=== PATIENT | male | born 1975 | race Caucasian/White ===

== ENCOUNTER 2022-08-04 07:08 | Day surgery (SDC) | payer BC ==
[2022-07-31 12:25] VITALS: BMI 32.8
[2022-08-04] MEDS ORDERED: LIDOCAINE HCL/PF 2% SDV 5ML VIAL ONE (07:27)
[2022-08-04] MEDS ORDERED: PROPOFOL 120 ML ONE (07:28)
[2022-08-04 09:23] VITALS: BP 130/74; PULSE 85; RESP 16; TEMP 97.6
== END 2022-08-04 09:54 | disposition home or self-care (01) ==
LOC: FASU-ENDO 07:08
PROVIDERS: ATTEND Internal Medicine Gastroenterology
PROC: 0DJD8ZZ Inspection of Lower Intestinal Tract, Via Natural or Artificial Opening Endoscopic (ICD-10-PCS; principal; 2022-08-04 08:59)
DX: Z12.11 Encounter for screening for malignant neoplasm of colon (principal); Z80.0 Family history of malignant neoplasm of digestive organs; K57.30 Diverticulosis of large intestine without perforation or abscess without bleeding